=== PATIENT | male | born 1995 | race Caucasian/White ===

== ENCOUNTER 2019-05-31 09:36 | Outpatient (REF) | payer SELFPAY | END 2019-05-31 09:56 | LOC: NCHCN 09:36 | PROVIDERS: PCP Family Medicine; Visit Provider Nurse Practitioner Family | DX: Z53.8 Procedure and treatment not carried out for other reasons (principal) | CPT/HCPCS: 80307 ==

== ENCOUNTER 2019-11-13 10:50 | Outpatient (REF) | payer MEDICAID, SELFPAY ==
[2019-11-13 21:39] LABS: HCT 46.1 % (40.0-50.0); HGB 15.5 g/dL (13.5-17.5); MCH 31.1 pg (27.0-33.0); MCHC 33.6 % (32.0-36.0); MCV 92.6 fL (80-95); MPV 10.5 fL (8.0-11.0); Platelet Count 269 10^3/uL (130-400); RBC 4.98 10^6/uL (4.36-5.78); RDW 11.9 % (11.8-14.1); RDW-SD 41.1 fL; WBC 6.85 10^3/uL (4.4-10.8)
[2019-11-13 23:09] LABS: ALT 57 U/L (16-63); AST 22 U/L (15-37); Albumin 4.1 g/dL (3.4-5.0); Alkaline Phosphatase 54 U/L (46-116); BUN 15 mg/dL (7-18); Bilirubin, Total 0.5 mg/dL (0.2-1.0); CREATININE 0.99 mg/dL (0.70-1.30); Chloride 104 mmol/L (98-107); Glucose 96 mg/dL (74-106); Sodium 142 mmol/L (136-145); TSH (W/Ref FT4) 1.15 uIU/mL (0.36-3.74); Vitamin B12 365 pg/mL (193-986)
[2019-11-14 00:08] LABS: Total Protein 7.2 g/dL (6.4-8.2)
[2019-11-14 00:15] LABS: Hemoglobin A1C 5.2 % (<5.7)
== END 2019-11-13 11:10 ==
LOC: NCHCN 10:50
PROVIDERS: PCP Family Medicine; Visit Provider Nurse Practitioner Community Health
DX: G60.9 Hereditary and idiopathic neuropathy, unspecified (principal); Z83.3 Family history of diabetes mellitus
CPT/HCPCS: 80053; 85027; 82607; 83036; 84443

== ENCOUNTER 2020-01-05 15:50 | Emergency (ER) | payer MEDICAID, SELFPAY ==
[2020-01-05 15:57] VITALS: BP 142/92; PULSE 108; RESP 18; TEMP 36.7; O2SAT 96
--- NOTE | 2020-01-05 16:15 | W.ED.GENAD ---
Discharge Plan Disposition Patient Disposition: HOME Condition: Stable Discharge Details Clinical Impression: Rash and nonspecific skin eruption Primary Care Provider: Unknown,Unknown ED Provider: Tania Sommer Home Meds and New Rx's Prescriptions: New famotidine [Pepcid] 20 mg tablet 20 mg PO DAILY Qty: 7 RF: 0 prednisone 20 mg tablet 60 mg PO DAILY 5 Days Qty: 15 RF: 0 triamcinolone acetonide 0.1 % cream 1 applic topical DAILY 5 Days Qty: 30 RF: 0 Continued ibuprofen 600 MG tablet 600 mg PO QID PRN (Reason: Pain) Qty: 20 RF: 0 cyanocobalamin (vitamin B-12) 1,000 mcg tablet 1,000 mcg PO DAILY RF: 0 magnesium oxide 500 mg tablet 500 mg PO BID RF: 0 vitamin B complex [Vitamins B Complex] Capsule 1 cap PO DAILY RF: 0 cholecalciferol (vitamin D3) 50 mcg (2,000 unit) capsule 2,000 unit PO DAILY RF: 0 Discharge Instructions Instructions: Acute Rash (ED) Additional Instructions: Follow up with primary care provider in 3-5 days. Return to ED sooner if any worsening or concerns. Increase oral fluids. Please take Tylenol or Ibuprofen with food every 4-6 hours as needed for pain and swelling. May take Benadryl 1 or 2 tablets every 6-8 hours as needed for rash and itching. Please return for any problems breathing or worsening rash. Stand Alone Forms: Work Release Medical Decision Making 24-year-old male presents to the ER chief complaint of rash for 2 to 3 days. He has generalized small purpura like rash. Positive pruritus. Is to upper arms, upper thighs, abdomen and back. He has not taken any medications prior to arrival. He denies any known source, no new detergents no new medications. There is no your urticaria or hives noted. No problems breathing. 1713: Patient reevaluation, erythema has decreased, patient is sleeping, pruritus has decreased. Rash is still somewhat present. Instructed to follow-up with PCP, verbalized understanding. At this time patient is stable to be discharged home, no trouble breathing no septic symptoms. HPI General Mode of arrival: ambulatory. Date/Time Provider Initiated Documentation: 01/05/20 16:08. Limitations to Documentation: no limitations. Information obtained by: patient. HPI Narrative: 24-year-old male presents to the ER chief complaint of rash for 2 to 3 days. He has generalized small purpura like rash. Positive pruritus. Is to upper arms, upper thighs, abdomen and back. He has not taken any medications prior to arrival. He denies any known source, no new detergents no new medications. There is no your urticaria or hives noted. No problems breathing. Related Data Home Medications Medication Instructions Recorded Confirmed ibuprofen 600 mg PO QID PRN #20 tablet 09/06/17 01/05/20 cholecalciferol (vitamin D3) 2,000 unit PO DAILY 01/05/20 01/05/20 cyanocobalamin (vitamin B-12) 1,000 mcg PO DAILY 01/05/20 01/05/20 famotidine [Pepcid] 20 mg PO DAILY #7 tab 01/05/20 magnesium oxide 500 mg PO BID 01/05/20 01/05/20 prednisone 60 mg PO DAILY 5 Days #15 tab 01/05/20 triamcinolone acetonide 1 applic TOPICAL DAILY 5 Days #30 g 01/05/20 vitamin B complex [Vitamins B 1 cap PO DAILY 01/05/20 01/05/20 Complex] Previous Rx's Medication Instructions Recorded ibuprofen 600 mg PO QID PRN #20 tablet 09/06/17 famotidine [Pepcid] 20 mg PO DAILY #7 tab 01/05/20 prednisone 60 mg PO DAILY 5 Days #15 tab 01/05/20 triamcinolone acetonide 1 applic TOPICAL DAILY 5 Days #30 g 01/05/20 Allergies Allergy/AdvReac Type Severity Reaction Status Date / Time No Known Allergies Allergy Unverified 01/05/20 16:02 General Stated Complaint: RashLesion EMILY: 3 Review of Systems Narrative: Constitutional: Negative for weight loss, alert and oriented, well groomed, normal body habitus, appears comfortable. HEENT: Denies trauma, headaches, blurry vision, nasal discharge, sore throat, trouble swallowing. Chest: Denies chest pain, palpitations, irregular rhythm, hypertension. Respiratory: Denies Shortness of breath, cough, hemoptysis. GI: Denies abdominal pain, nausea, vomiting, diarrhea, constipation. : Denies dysuria, hematuria, flank pain, rectal bleeding. Skin: Rash and itching x2 to 3 days. Neuro: Denies dizziness, blurry vision, weakness, syncope, headache or facial numbness. Hematologic: Denies easy bruising, intolerance to heat or cold, hair loss. [facility] Medical History Family history of diabetes mellitus Fine motor skill loss Peripheral neuropathy Well adult exam Social History Smoking/Tobacco Use Status: Never Smoking risk assessment performed?: Yes Alcohol Intake: never Drug use: Never Substance use type: does not use Do you feel safe at home: Yes Do you feel safe in your relationship?: Yes Exam Narrative Exam Narrative: Constitutional: Alert and oriented x3. Appears stated age. Normal body habitus. Head: Normocephalic, no trauma. Eyes: Pupils PERRLA, Red reflex noted, EOM's intact. Eyelids symmetrical without lesions, discharge, or swelling. ENT: Bilateral TM's WNL, External ear normal to inspection, no mastoid TTP, swelling, or erythema, Nasal turbinates WNL, no nasal discharge. Normal dentition, Posterior pharynx WNL, no exudate. Chest: RRR, Normal S1, S2, distal pulses intact. Resp: Lungs clear to auscultation bilaterally, no wheezes, rales, or rhonchi. No trouble breathing. Musculoskeletal: Normal gait, 5/5 strength to all four extremities. Skin: Generalized rash noted to chest abdomen back upper extremities and upper thighs. Purpura no urticaria or hives noted. capillary refill less than 2 sec. Neurologic: Cranial nerves II-XII intact. Alert and oriented x 3. DTR's intact. Hematologic/Lymphatic: No ecchymosis, no lymphadenopathy. Course Vital Signs Vital signs: Vital Signs Temperature 36.7 C 01/05/20 15:57 Pulse 108 H 01/05/20 15:57 Respiratory Rate 18 01/05/20 15:57 Blood Pressure 142/92 H 01/05/20 15:57 Pulse Oximetry 96 01/05/20 15:57 Temperature 36.7 C 01/05/20 15:57 Temperature Source Temporal Artery Scan 01/05/20 15:57 Pulse 108 H 01/05/20 15:57 Respiratory Rate 18 01/05/20 15:57 Respiratory Effort Non-Labored 01/05/20 16:04 Blood Pressure 142/92 H 01/05/20 15:57 Blood Pressure Position Sitting 01/05/20 15:57 Pulse Oximetry 96 01/05/20 15:57 Oxygen Delivery Method Room Air 01/05/20 15:57 Oxygen Flow Rate 0 01/05/20 15:57 Pain Level 5 01/05/20 15:57
[2020-01-05] MEDS: Famotidine 20 MG TAB 40 MG PO (16:23)
[2020-01-05] MEDS: diphenhydrAMINE 25 MG CAP 50 MG PO (16:24)
[2020-01-05] MEDS: predniSONE 20 MG TAB 60 MG PO (16:24)
[2020-01-05 16:28] VITALS: BP 117/88; PULSE 118; RESP 20; O2SAT 98
--- NOTE | 2020-01-05 22:01 | NUR.NOTE ---
Nursing Note:Itching and redness almost completely resolved . Still has some red spots but also has some that appear to be acne. Feels much better.
== END 2020-01-05 17:50 | disposition home or self-care (01) ==
PROVIDERS: Emergency Provider Registered Nurse Emergency
DX: R21 Rash and other nonspecific skin eruption (principal); L29.9 Pruritus, unspecified
CPT/HCPCS: 99283; J7512

== ENCOUNTER 2020-04-30 02:53 | Outpatient (CLI) | payer MEDICAID, SELFPAY ==
[2020-04-30 17:01] LABS: C-Reactive Protein 0.37 mg/dL (0.0-0.3); Creatine Kinase 79 U/L (39-308)
[2020-04-30 21:42] LABS: Rheumatoid Factor <8.6 IU/mL (<12.0)
[2020-05-01 11:59] LABS: ESR 5 mm/hr (<or=15)
[2020-05-01 14:32] LABS: ANA Interpretation Negative (Negative)
== END 2020-04-30 02:54 | disposition home or self-care (01) ==
LOC: LBO 02:53
PROVIDERS: Visit Provider Psychiatry & Neurology Neurology
DX: R20.2 Paresthesia of skin (principal); M79.605 Pain in left leg; M25.531 Pain in right wrist; M25.532 Pain in left wrist
CPT/HCPCS: 36415; 82550; 85652; 86038; 86140; 86431

== ENCOUNTER 2020-06-17 01:29 | Outpatient (CLI) | payer MEDICAID, SELFPAY ==
--- NOTE | 2020-06-17 11:45 | DI.MRI_ITS ---
Exam(s) MR BRAIN WO EXAM: MR BRAIN WO CLINICAL HISTORY: LT LEG PARESTHESIAS,PAIN,R52,R20.2, ? MS TECHNIQUE: Multiplanar multisequence MRI of the brain was performed. COMPARISON: No exams were available for comparison FINDINGS: VENTRICLES AND EXTRA AXIAL SPACES: Normal in size and morphology for the patient's age. MIDLINE SHIFT: None. CEREBRAL PARENCHYMA: No focus of restricted diffusion to suggest acute infarct. No space-occupying le ritika identified. HEMORRHAGE: None. BRAINSTEM/CEREBELLUM: Normal. CALVARIUM: Normal. VISUALIZED PARANASAL SINUSES/MASTOIDS:Clear. TAZLINA OF REVELES: Normal flow void. PITUITARY GLAND: Unremarkable. OTHER FINDINGS: None. IMPRESSION: Unremarkable MRI of the brain. DATA REPOSITORY:
== END 2020-06-17 01:49 ==
PROVIDERS: Visit Provider Psychiatry & Neurology Neurology
DX: R20.2 Paresthesia of skin (principal); M79.605 Pain in left leg; M25.531 Pain in right wrist; M25.532 Pain in left wrist
CPT/HCPCS: 70551

== ENCOUNTER 2020-09-16 17:57 | Emergency (ER) | payer MEDICAID, SELFPAY ==
[2020-09-16 18:03] VITALS: BP 126/79; PULSE 82; RESP 20; TEMP 37.1; O2SAT 97
--- NOTE | 2020-09-16 18:15 | DI.CT_ITS ---
Exam(s) CT HEAD WO EXAM: CT HEAD WO CLINICAL HISTORY: dizziness, sinus congestion. TECHNIQUE: Imaging Protocol: Axial computed tomography images with coronal and sagittal reformatted images were created and reviewed COMPARISON: No exams were available for comparison FINDINGS: The ventricular system is normal in appearance. No evidence of acute intracranial hemorrhage, mass effect, or midline shift. The orbital structures are unremarkable. The temporal bone structures appear intact. Calvarium: Normal. Visualized Paranasal sinuses/Mastoids: Clear. IMPRESSION: Normal cranial CT. RADIATION DOSE DELIVERED: 820.63mGy.cm Total DLP 820.63mGy.cm Total DLP CTDIvol DATA REPOSITORY: All CT scans at this facility are submitted to the National Radiology Data Registry (NRDR) Dose Index Registry (DIR) with the [employer] (ACR). RADIATION OPTIMIZATION: All CT scans at this facility use at least one of these dose optimization te chniques: automated exposure control; mA and/or kV adjustment per patient size (includes targeted exa ms where dose is matched to clinical indication); or iterative reconstruction.
--- NOTE | 2020-09-16 18:16 | ED.GENADUL_ITS ---
Discharge Plan Disposition Patient Disposition: HOME Condition: Improving Discharge Details Chief Complaint: Dizzy/Sync Clinical Impression: Episodic peripheral vertigo ED Provider: Satya Patel Home Meds and New Rx's Prescriptions: New meclizine 12.5 mg tablet 12.5 mg PO TID PRN (Reason: dizziness) Qty: 10 RF: 0 Continued ibuprofen 600 MG tablet 600 mg PO QID PRN (Reason: Pain) Qty: 20 RF: 0 cyanocobalamin (vitamin B-12) 1,000 mcg tablet 1,000 mcg PO DAILY RF: 0 magnesium oxide 500 mg tablet 500 mg PO DAILY RF: 0 vitamin B complex [Vitamins B Complex] Capsule 1 cap PO DAILY RF: 0 cholecalciferol (vitamin D3) 50 mcg (2,000 unit) capsule 2,000 unit PO DAILY RF: 0 Discharge Instructions Instructions: Vertigo (ED) Additional Instructions: You may benefit from sleeping with head of the bed elevated 2-3 pillows for the next 2-3 nights. Avoid sudden movements of the head or sudden bending at the waist. Home to rest this evening. May use meclizine, as prescribed, as needed for dizziness. We will ask our care management team to help you establish local primary care. Medical Decision Making 25-year-old male reports 2-3 episodes of vertiginous, spinning sensation over the past 2 weeks time. He recently reports increased sinus drainage from what he describes as seasonal allergies. He has not had significant headache or vomiting. No recent fever or illness. He arrives to the ER with stable vital signs and a reassuring exam but does reveal some horizontal nystagmus with leftward gaze. His neurologic exam is otherwise unremarkable. Consideration of sinusitis, peripheral vertigo, must exclude intracranial mass although he did have an unremarkable MRI of the brain on June 17. IV access established, patient given a fluid bolus, screening labs obtained he is referred for noncontrast CT scan of the head. Patient given meclizine by mouth. Patient has unremarkable CBC, chemistries. CT scan of the head without evidence of acute intracranial abnormality nor of sinusitis. He is improved. I will prescribe him meclizine to be used as needed. He wishes to establish local primary care which we will ask care management to assist with. He is stable and improved, appropriate for discharge to home. HPI General Mode of arrival: ambulatory . Date/Time Provider Initiated Documentation: 09/16/20 17:58 . Limitations to Documentation: no limitations . Information obtained by: patient . History of Present Illness 25 year old M presents to the emergency department with the chief complaint of Intermittent dizziness over 2 weeks time, described as mild, and is localized to the head. Patient reports no radiation. Patient started experiencing this day(s) and it has been intermittent. No relieving factors improve symptom(s), No exacerbating factors reported . Patient notes denies fever/chills, headaches, nausea/vomiting and syncope. Patient did receive the following treatments prior to arrival, none Related Data Home Medications Medication Instructions Recorded Confirmed ibuprofen 600 mg PO QID PRN #20 tab 09/06/17 09/16/20 cholecalciferol (vitamin D3) 2,000 unit PO DAILY 09/16/20 09/16/20 cyanocobalamin (vitamin B-12) 1,000 mcg PO DAILY 09/16/20 09/16/20 magnesium oxide 500 mg PO DAILY 09/16/20 09/16/20 meclizine 12.5 mg PO TID PRN #10 tab 09/16/20 vitamin B complex [Vitamins B 1 cap PO DAILY 09/16/20 09/16/20 Complex] Previous Rx's Medication Instructions Recorded ibuprofen 600 mg PO QID PRN #20 tab 09/06/17 meclizine 12.5 mg PO TID PRN #10 tab 09/16/20 Allergies Allergy/AdvReac Type Severity Reaction Status Date / Time seasonal Allergy Unknown Uncoded 08/13/20 08:43 General Stated Complaint: Dizzy/Sync EMILY: 2 Review of Systems Narrative: Some seasonal allergies and sinus pressure. No vomiting. No recent illness. No fever, chills. 8 systems reviewed and otherwise negative. [facility] Medical History Anxiety Family history of diabetes mellitus Obstructive sleep apnea Surgical History No significant past surgical history Family History Father Diabetes Sister Asthma Mother Asthma Social History Smoking/Tobacco Use Status: Never Smoking risk assessment performed?: Yes Alcohol Intake: never Drug use: Never Substance use type: does not use Household members: none Number of Children: 0 current occupation: [employer] for [employer] Pets and animals: No What is your relationship status?: never Panel score (0-1 are the most socially isolated patients): 0 What type of physical activity do you participate in: walking Seatbelt use: always Do you feel safe at home: Yes Do you feel safe in your relationship?: Yes Exam Narrative Exam Narrative: GEN: awake, alert, oriented 3. Pleasant, well groomed, interactive. HEAD: Normocephalic, atraumatic ENT: Mucous membranes moist, oropharynx unremarkable, tympanic membranes clear bilaterally. External ear exam unremarkable EYES: PERRL, EOMI, with left lateral gaze there is 3 beat horizontal nystagmus. NECK: Full ROM, no ZACK, no menigismus CHEST/RESP: Nontender, clear to auscultation bilateral, no wheeze/rhonchi/rales CARDIOVASCULAR: RRR, no murmur, rub bryan. 2+ Rad pulse bilateral ABDOMEN: Soft, nontender, no mass. +Bowel sounds EXT: Full ROM, no edema, no rash Neuro: Grossly normal neurologic exam, conversant, interactive. Psych: Speech fluent, thoughts congruent, affect normal Course Vital Signs Vital signs: Vital Signs Temperature 37.1 C 09/16/20 18:03 Pulse 82 09/16/20 18:03 Respiratory Rate 20 09/16/20 18:03 Blood Pressure 126/79 09/16/20 18:03 Pulse Oximetry 97 09/16/20 18:03 Temperature 37.1 C 09/16/20 18:03 Temperature Source Temporal Artery Scan 09/16/20 18:03 Pulse 82 09/16/20 18:03 Respiratory Rate 20 09/16/20 18:03 Respiratory Effort Non-Labored 09/16/20 18:07 Blood Pressure 126/79 09/16/20 18:03 Blood Pressure Position Sitting 09/16/20 18:03 Pulse Oximetry 97 09/16/20 18:03 Oxygen Delivery Method Room Air 09/16/20 18:03 Oxygen Flow Rate 0 09/16/20 18:03 Pain Level 2 09/16/20 18:03
[2020-09-16] MEDS: Normal Saline 1,000 ML 1000 ML IV (18:37)
[2020-09-16] MEDS: Meclizine 25 MG TAB PO (18:37)
[2020-09-16 18:44] LABS: Abs Immature Grans 0.01 10^3/uL (0.0-0.06); Absolute Basophil Count 0.03 10^3/uL (0.0-0.2); Absolute Lymphocyte Count 2.66 10^3/uL (1.2-3.4); Absolute Monocyte Count 0.56 10^3/uL (0.1-0.8); Absolute Neutrophil Count 3.68 10^3/uL (1.2-6.7); Basophils % 0.4; Eosinophils % 1.4; HCT 42.1 % (40.0-50.0); HGB 14.5 g/dL (13.5-17.5); Immature Grans % 0.1; Lymphocytes % 37.8; MCH 31.6 pg (27.0-33.0); MCHC 34.4 % (32.0-36.0); MCV 91.7 fL (80-95); Neutrophils % 52.3; Nucleated RBC 0 %; Platelet Count 233 10^3/uL (130-400); RBC 4.59 10^6/uL (4.36-5.78); RDW 11.7 % (11.8-14.1); RDW-SD 39.3 fL; WBC 7.04 10^3/uL (4.4-10.8)
[2020-09-16 18:56] LABS: ALT 31 U/L (16-63); AST 11 U/L (15-37); Albumin 4.1 g/dL (3.4-5.0); Alkaline Phosphatase 56 U/L (46-116); Anion Gap 6.6 mmol/L (3-11); BUN 18 mg/dL (7-18); Bilirubin, Total 0.4 mg/dL (0.2-1.0); CO2 30.4 mmol/L (21.0-32.0); Calcium 8.8 mg/dL (8.5-10.1); Chloride 104 mmol/L (98-107); Glucose 98 mg/dL (74-106); Sodium 141 mmol/L (136-145); Total Protein 7.3 g/dL (6.4-8.2)
--- NOTE | 2020-09-16 18:57 | DI.VRAD_ITS ---
PROCEDURE INFORMATION: Exam: CT Head Without Contrast Exam date and time: 09/16/2020 6:16 PM Age: 25 years old Clinical indication: Dizziness and other: Sinus congestion; Patient HX: Dizziness, sinus congestion TECHNIQUE: Imaging protocol: Computed tomography of the head without contrast. COMPARISON: MR BRAIN WO 06/17/2020 11:15 AM FINDINGS: Brain: Normal. No hemorrhage. Unremarkable white matter. No mass effect. Cerebral ventricles: No ventriculomegaly. Paranasal sinuses: There is an isolated opacified ethmoid air cells otherwise the paranasal sinuses are clear. Mastoid air cells: Visualized mastoid air cells are well aerated. Bones/joints: Unremarkable. No acute fracture. Soft tissues: Unremarkable. IMPRESSION: No evidence of acute intracranial abnormality. No evidence of acute sinusitis. Dictated and Authenticated by: Dawson Artis MD. Ordering:GABRIEL Hernadez MD
--- NOTE | 2020-09-16 20:15 | NUR.NOTE ---
Referral to Care Management to establish pcp 1-2 weeks, vertigo.Nursing Note:
--- NOTE | 2020-09-17 10:48 | CMPROGNOTE_ITS ---
- If Service Date Differs Date of service: 09/17/20 Time of Service: 10:48 Care Management Progress Note Wallace is seen in the ED for vertigo. CM receives a request from ED provider to help Wallace establish with a PCP. A review of his medical chart reveals that he is already established with a provider at the [facility]. CM telephones the [facility] and is advised that Wallace is still an active patient. CM requests that they contact Wallace directly to offer a follow up appointment and to discuss transferring his care to the [facility], as he now resides in [facility] and traveling to [place] may be a barrier to care.
== END 2020-09-16 19:15 | disposition home or self-care (01) ==
LOC: ER 20:07
PROVIDERS: Emergency Provider Emergency Medicine
DX: H81.392 Other peripheral vertigo, left ear (principal); R09.81 Nasal congestion
CPT/HCPCS: 36415; 80053; 96360; 99284; 70450; 85025

== ENCOUNTER 2021-11-28 18:06 | Outpatient (REF) | payer MEDICAID, SELFPAY ==
[2021-12-01 09:14] LABS: Hepatitis B Surface Ag Negative (Negative)
[2021-12-01 09:55] LABS: HIV-1/2 Ag & Ab Screen Negative (Negative)
[2021-12-01 09:59] LABS: Hepatitis C Ab w Rflx HCV PCR Negative (Negative)
[2021-12-01 10:46] LABS: Syphilis Serology (RPR) Negative (Negative)
== END 2021-11-28 18:07 | disposition home or self-care (01) ==
LOC: LBN 18:06
PROVIDERS: Visit Provider Physician Assistant Medical
DX: Z11.59 Encounter for screening for other viral diseases (principal); Z11.3 Encounter for screening for infections with a predominantly sexual mode of transmission
CPT/HCPCS: 86803; 87340; 87389; 86592

== ENCOUNTER 2022-03-29 17:43 | Emergency (ER) | payer MEDICAID, SELFPAY ==
--- NOTE | 2022-03-29 17:45 | DI.RAD_ITS ---
Exam(s) XR FINGER LT RING EXAM: XR FINGER LT RING CLINICAL HISTORY: distal injury. TECHNIQUE: 2D digital imaging was performed. Three views. COMPARISON: None. FINDINGS: BONES: No acute fracture is present. No bony destructive lesion is seen. JOINTS: No dislocation present. SOFT TISSUE: Normal. IMPRESSION: No evidence of acute fracture, dislocation, or subluxation. DATA REPOSITORY: RADIATION DOSE DELIVERED:
[2022-03-29 17:46] VITALS: BP 143/88; PULSE 90; RESP 18; TEMP 37.2; O2SAT 98
--- NOTE | 2022-03-29 18:31 | DI.VRAD_ITS ---
PROCEDURE INFORMATION: Exam: XR Left Finger(s) Exam date and time: 03/29/2022 6:02 PM Age: 26 years old Clinical indication: Pain; Finger(s); Left; Patient HX: Distal injury TECHNIQUE: Imaging protocol: Radiologic exam of the Left fingers. Views: Minimum 2 views. COMPARISON: No relevant prior studies available. FINDINGS: Bones/joints: No fracture or dislocation. Soft tissues: Soft tissue swelling. No gas. No foreign body. IMPRESSION: 1. No fracture or dislocation. 2. Soft tissue swelling. No foreign body. Dictated and Authenticated by: Kit Oconnell MD. Ordering:NEETU Hammer MD
--- NOTE | 2022-03-31 19:25 | ED.GENADUL_ITS ---
Discharge Plan Disposition Patient Disposition: Home Condition: Stable Discharge Details Clinical Impression: Injury of left ring finger Primary Care Provider: Unknown,Unknown ED Provider: Jaquelin Osman Home Meds and New Rx's Prescriptions: Continued ibuprofen 600 MG tablet 600 mg PO QID PRN (Reason: Pain) Qty: 20 0RF cyanocobalamin (vitamin B-12) 1,000 mcg tablet 1,000 mcg PO DAILY Patient Comments: TAKE ONE TABLET BY MOUTH EVERY MORNING magnesium oxide 500 mg tablet 500 mg PO DAILY Patient Comments: TAKE ONE TABLET BY MOUTH TWICE A DAY vitamin B complex [Vitamins B Complex] Capsule 1 cap PO DAILY Patient Comments: TAKE ONE CAPSULE BY MOUTH EVERY MORNING cholecalciferol (vitamin D3) 50 mcg (2,000 unit) capsule 2,000 unit PO DAILY Patient Comments: TAKE ONE CAPSULE BY MOUTH EVERY DAY meclizine 12.5 mg tablet 12.5 mg PO TID PRN (Reason: dizziness) Qty: 10 0RF Discharge Instructions Additional Instructions: Take Tylenol and ibuprofen as needed for pain ice, elevate recheck in one week with persistent pain Stand Alone Forms: Work Release Discharge Data Discharge Date/Time-TO BE ENTERED AT DEPARTURE: 03/29/22 19:44 HPI General Date/Time Provider Initiated Documentation: 03/29/22 17:53 . HPI Narrative: This 26-year-old male presents with injury to left fourth ring finger at work. 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 This was an accident. He has had bruising and pain to the distal finger since that time. He is otherwise reportedly healthy. Event occurred today. Related Data Home Medications Medication Instructions Recorded Confirmed ibuprofen 600 mg tablet 600 mg PO QID PRN Pain #20 tabs 09/06/17 03/29/22 cholecalciferol (vitamin D3) 50 2,000 unit PO DAILY 09/16/20 03/29/22 mcg (2,000 unit) capsule cyanocobalamin (vitamin B-12) 1,000 mcg PO DAILY 09/16/20 03/29/22 1,000 mcg tablet magnesium oxide 500 mg tablet 500 mg PO DAILY 09/16/20 03/29/22 meclizine 12.5 mg tablet 12.5 mg PO TID PRN dizziness #10 09/16/20 03/29/22 tabs vitamin B complex (Vitamins B 1 cap PO DAILY 09/16/20 03/29/22 Complex capsule) Previous Rx's Medication Instructions Recorded ibuprofen 600 mg tablet 600 mg PO QID PRN Pain #20 tabs 09/06/17 meclizine 12.5 mg tablet 12.5 mg PO TID PRN dizziness #10 09/16/20 tabs Allergies Allergy/AdvReac Type Severity Reaction Status Date / Time seasonal Allergy Unknown Uncoded 03/29/22 17:49 General Stated Complaint: Orthopedic EMILY: 4 PFSH All Active Problems (Updated 03/29/22 @ 18:34 by KEDAR Elliott) Episodic peripheral vertigo (Acute) Injury of left ring finger (Acute) Pain (Acute) Left leg paresthesias (Acute) Medical History Anxiety Family history of diabetes mellitus Obstructive sleep apnea Surgical History No significant past surgical history Family History Father Diabetes Sister Asthma Mother Asthma Social History Smoking/Tobacco Use Status: Never Smoking risk assessment performed?: Yes Alcohol Intake: never Drug use: Never Substance use type: does not use Household members: none Number of Children: 0 current occupation: [employer] for [employer] Pets and animals: No What is your relationship status?: never Panel score (0-1 are the most socially isolated patients): 0 What type of physical activity do you participate in: walking Seatbelt use: always Do you feel safe at home: Yes Do you feel safe in your relationship?: Yes Exam Narrative Exam Narrative: Patient presents with left fourth digit injury on hand Secondary to complaint and physical exam, x-ray was ordered which does not show evidence of fracture Approximately 2 mm subungual hematoma, no indication for trephination at this point Neurovascularly intact, placed in a splint for comfort Work note supplied Ibuprofen and Tylenol. He Return precautions reviewed and patient expressed understanding Course Vital Signs Vital signs: Vital Signs Temperature 37.2 C 03/29/22 17:46 Pulse 90 03/29/22 17:46 Respiratory Rate 18 03/29/22 17:46 Blood Pressure 143/88 H 03/29/22 17:46 Pulse Oximetry 98 03/29/22 17:46 Temperature 37.2 C 03/29/22 17:46 Temperature Source Oral 03/29/22 17:46 Pulse 90 03/29/22 17:46 Respiratory Rate 18 03/29/22 17:46 Respiratory Effort Normal, Non-Labored 03/29/22 17:50 Blood Pressure 143/88 H 03/29/22 17:46 Pulse Oximetry 98 03/29/22 17:46 Oxygen Delivery Method Room Air 03/29/22 17:46 Oxygen Flow Rate 0 03/29/22 17:46 Pain Level 5 03/29/22 17:50
== END 2022-03-29 19:44 | disposition home or self-care (01) ==
PROVIDERS: Emergency Provider Physician Assistant
DX: S60.042A Contusion of left ring finger without damage to nail, initial encounter (principal); W23.0XXA Caught, crushed, jammed, or pinched between moving objects, initial encounter; Y92.89 Other specified places as the place of occurrence of the external cause; Y99.0 Civilian activity done for income or pay
CPT/HCPCS: 99283; 73140; 99282

== ENCOUNTER 2022-07-24 16:32 | Emergency (ER) | payer BC, MEDICAID, SELFPAY ==
--- NOTE | 2022-07-24 16:30 | RT.EKG_ITS ---
APPROVED REPORT Exam: Resting ECG Reason for Exam: chest pain Patient Location: E HR:77 bpm ECG Measurements Heart Rate 77 AXIS SC 143 P 62 QRSd 93 QRS 45 QT 373 T 28 QTc 423 Conclusion Sinus rhythm...normal P axis, V-rate 60- 99 Probable left atrial enlargement...P >50mS, <-0.10mV V1 ST elev, probable normal early repol pattern...ST elevation, age<55
--- NOTE | 2022-07-24 16:30 | DI.RAD_ITS ---
Exam(s) XR CHEST 2V PA LATERAL EXAM: XR CHEST 2V PA LATERAL CLINICAL HISTORY: Chest Pain TECHNIQUE: 2D digital imaging was performed of the chest. Two images were obtained. PA and lateral views were obtained. COMPARISON: No exams were available for comparison FINDINGS: MEDIASTINUM: Normal. HEART: Normal. PULMONARY VASCULATURE: Normal. LUNGS: Clear. PLEURAL SPACE: No pleural effusion or pneumothorax. BONE:Within normal limits for the patient's age. OTHER FINDINGS:Normal. IMPRESSION: No acute pulmonary findings. DATA REPOSITORY: RADIATION DOSE DELIVERED:
[2022-07-24 16:35] VITALS: BP 129/83; PULSE 83; RESP 18; TEMP 36.9; O2SAT 99
[2022-07-24 16:42] VITALS: RESP 24
--- NOTE | 2022-07-24 16:45 | ED.GENADUL_ITS ---
Discharge Plan Disposition Patient Disposition: Home Discharge Details Clinical Impression: Chest wall pain Primary Care Provider: Unknown,Unknown ED Provider: Tania Sommer Home Meds and New Rx's Prescriptions: No Action ibuprofen 600 MG tablet 600 mg PO QID PRN (Reason: Pain) Qty: 20 0RF cyanocobalamin (vitamin B-12) 1,000 mcg tablet 1,000 mcg PO DAILY Patient Comments: TAKE ONE TABLET BY MOUTH EVERY MORNING magnesium oxide 500 mg tablet 500 mg PO DAILY Patient Comments: TAKE ONE TABLET BY MOUTH TWICE A DAY vitamin B complex [Vitamins B Complex] Capsule 1 cap PO DAILY Patient Comments: TAKE ONE CAPSULE BY MOUTH EVERY MORNING cholecalciferol (vitamin D3) 50 mcg (2,000 unit) capsule 2,000 unit PO DAILY Patient Comments: TAKE ONE CAPSULE BY MOUTH EVERY DAY meclizine 12.5 mg tablet 12.5 mg PO TID PRN (Reason: dizziness) Qty: 10 0RF Discharge Instructions Instructions: Chest Wall Pain (ED) Additional Instructions: Work-up is within normal limits no acute abnormality for cardiac or lung. I do suspect that you have a muscle wall strain or STEMI called costochondritis which is inflammation of the chest wall. Please take Tylenol or Ibuprofen with food every 4-6 hours as needed for pain and swelling. Alternate ice and heat. Follow up with primary care provider in 3-5 days. Return to ED sooner if any worsening or concerns. Increase oral fluids. You are placed on care management list to help establish PCP. Stand Alone Forms: Work Release Discharge Data Discharge Date/Time-TO BE ENTERED AT DEPARTURE: 07/24/22 18:33 Medical Decision Making 27-year-old male presents to the ER with chief complaint of midsternal sharp chest pain which began approximately 15 minutes prior to arrival while working at a local [email or web address]. He reports worse with movement and deep breathing it has subsided somewhat but is still present upon arrival. Denies any trauma to the chest no shortness of breath no nausea. Pain is not producible with palpation. Does have a past medical history of anxiety and obstructive sleep apnea. He denies smoking no drugs or alcohol he reports he did have an energy drink earlier. He did not take any medications prior to arrival. EKG was reviewed by Dr. Barry Del Rosario ER attending, please see his official report. No old EKG available for review. Some questionable ST elevation probably early repolarization. No STEMI. Chest x-ray, CBC CMP 1 troponin and Toradol ordered. Differential diagnosis includes but not limited to CAD, pleurisy, costochondritis, chest wall pain, anxiety 1820: Patient reevaluation, he reports he feels much better after the Toradol. Discussed negative workup with patient who verbalizes understanding. Will place patient on care management list to aid in establishing PCP. This text was generated using [employer] dictation system, please disregard any oddities of phrase or misspellings. Medical Records Medical records reviewed: Yes I reviewed the patient's medical records. Imaging Data Radiologic Study: Imaging: X-Ray Radiologist's impression: Clinical indication: Other: Chest pain TECHNIQUE: Imaging protocol: Radiologic exam of the chest. Views: 2 views. COMPARISON: No relevant prior studies available. FINDINGS: Lungs: Unremarkable. No consolidation. Pleural spaces: Unremarkable. No pleural effusion. No pneumothorax. Heart/Mediastinum: Unremarkable. No cardiomegaly. Bones/joints: Unremarkable. IMPRESSION: No acute findings. Thank you for allowing us to participate in the care of your patient. Dictated and Authenticated by: Roberto Dwyer MD Lab Data Lab results reviewed: Yes I reviewed the patient's lab results. Labs: Laboratory Tests Range/Units 07/24/22 07/24/22 07/24/22 16:50 16:50 16:50 WBC (4.4-10.8) 10^3/uL 7.43 RBC (4.36-5.78) 10^6/uL 4.82 Hgb (13.5-17.5) g/dL 15.3 Hct (40.0-50.0) % 44.2 MCV (80-95) fL 92 MCH (27.0-33.0) pg 31.7 MCHC (32.0-36.0) % 34.6 RDW (11.8-14.1) % 11.7 L Plt Count (130-400) 10^3/uL 263 MPV (8.0-11.0) fL 9.7 Immature Gran % 0.4 Neutrophils % 53.0 Lymphocytes % 38.5 Monocytes % 6.2 Eosinophils % 1.5 Basophils % 0.4 Nucleated RBC % (0.0-0.3) % 0.0 Absolute Neutrophils (1.2-6.7) 10^3/uL 3.94 Absolute Lymphocytes (1.2-3.4) 10^3/uL 2.86 Absolute Monocytes (0.1-0.8) 10^3/uL 0.46 Absolute Eosinophils (0.0-0.7) 10^3/uL 0.11 Absolute Basophils (0.0-0.2) 10^3/uL 0.03 Sodium (136-145) mmol/L 138 Potassium (3.5-5.1) mmol/L 3.9 Chloride (98-107) mmol/L 101 Carbon Dioxide (21.0-32.0) mmol/L 30.5 Anion Gap (3-11) mmol/L 6.5 BUN (7-18) mg/dL 18 Creatinine (0.70-1.30) mg/dL 1.0 Est GFR (CKD-EPI 2020) (mL/min/1.73m2) 107.12 Glucose (74-106) mg/dL 101 Calcium (8.5-10.1) mg/dL 9.3 Troponin I (<or=60) ng/L < 50 HPI General Mode of arrival: ambulatory . Date/Time Provider Initiated Documentation: 07/24/22 16:32 . Limitations to Documentation: no limitations . Information obtained by: patient, RN notes reviewed and old records reviewed . 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 He reports worse with movement and deep breathing it has subsided somewhat but is still present upon arrival. Denies any trauma to the c hest no shortness of breath no nausea. Pain is not producible with palpation. Does have a past medical history of anxiety and obstructive sleep apnea. He denies smoking no drugs or alcohol he reports he did have an energy drink earlier. He did not take any medications prior to arrival. Related Data Home Medications Medication Instructions Recorded Confirmed ibuprofen 600 mg tablet 600 mg PO QID PRN Pain #20 tabs 09/06/17 03/29/22 cholecalciferol (vitamin D3) 50 2,000 unit PO DAILY 09/16/20 03/29/22 mcg (2,000 unit) capsule cyanocobalamin (vitamin B-12) 1,000 mcg PO DAILY 09/16/20 03/29/22 1,000 mcg tablet magnesium oxide 500 mg tablet 500 mg PO DAILY 09/16/20 03/29/22 meclizine 12.5 mg tablet 12.5 mg PO TID PRN dizziness #10 09/16/20 03/29/22 tabs vitamin B complex (Vitamins B 1 cap PO DAILY 09/16/20 03/29/22 Complex capsule) Previous Rx's Medication Instructions Recorded ibuprofen 600 mg tablet 600 mg PO QID PRN Pain #20 tabs 09/06/17 meclizine 12.5 mg tablet 12.5 mg PO TID PRN dizziness #10 09/16/20 tabs Allergies Allergy/AdvReac Type Severity Reaction Status Date / Time seasonal Allergy Unknown Uncoded 03/29/22 17:49 General Stated Complaint: Chest Pain EMILY: 3 Review of Systems All systems reviewed & are unremarkable except as noted in HPI and below Cardiovascular Cardiovascular: Reports chest pain and Denies dyspnea Respiratory Respiratory: Denies cough, Denies dyspnea and Denies wheezing Gastrointestinal Gastrointestinal: Denies diarrhea, Denies nausea and Denies vomiting Allergic/Immunologic Allergic/Immunologic: Denies wheezing PFSH All Active Problems (Updated 07/24/22 @ 18:23 by Tania Sommer NP) Episodic peripheral vertigo (Acute) Chest wall pain (Acute) Pain (Acute) Left leg paresthesias (Acute) Medical History Anxiety Family history of diabetes mellitus Obstructive sleep apnea Surgical History No significant past surgical history Family History Father Diabetes Sister Asthma Mother Asthma Social History Smoking/Tobacco Use Status: Never Smoking risk assessment performed?: Yes Alcohol Intake: never Drug use: Never Substance use type: does not use Household members: none Number of Children: 0 current occupation: [email or web address] Pets and animals: No What is your relationship status?: never Panel score (0-1 are the most socially isolated patients): 0 What type of physical activity do you participate in: walking Seatbelt use: always Do you feel safe at home: Yes Do you feel safe in your relationship?: Yes Exam Narrative Exam Narrative: Constitutional: Alert and oriented x3. Appears stated age. Normal body habitus. Head: Normocephalic, no trauma. Eyes: Pupils PERRL, Red reflex noted, EOM's intact. Eyelids symmetrical without lesions, discharge, or swelling. ENT: Bilateral TM's WNL, External ear normal to inspection, no mastoid TTP, swelling, or erythema, Nasal turbinates WNL, no nasal discharge. Normal dentition, Posterior pharynx WNL, no exudate. Chest: RRR, Normal S1, S2, distal pulses intact. No murmurs rubs or gallops. Resp: Lungs clear to auscultation bilaterally, no wheezes, rales, or rhonchi. Abdomen: Soft, non-distended, Normoactive bowel sounds all 4 quads. Musculoskeletal: Normal gait, 5/5 strength to all four extremities. Skin: No suspicious rashes or lesions. Capillary refill less than 2 sec. Neurologic: Cranial nerves II-XII intact. Alert and oriented x 3. Motor: No deficits noted. Sensory: Intact bilaterally all 4 extremities. Reflexes: DTR's intact bilaterally.. Hematologic/Lymphatic: No ecchymosis, no lymphadenopathy. Course Vital Signs Vital signs: Vital Signs Temperature 36.9 C 07/24/22 16:35 Pulse 83 07/24/22 16:35 Respiratory Rate 18 07/24/22 16:35 Blood Pressure 129/83 07/24/22 16:35 Pulse Oximetry 99 07/24/22 16:35 Temperature 36.9 C 07/24/22 16:35 Pulse 83 07/24/22 16:35 Respiratory Rate 24 07/24/22 16:42 Respiratory Effort Normal 07/24/22 16:42 Respiratory Depth Normal 07/24/22 16:42 Respiratory Pattern Normal 07/24/22 16:42 Blood Pressure 129/83 07/24/22 16:35 Blood Pressure Position Sitting 07/24/22 16:35 Pulse Oximetry 99 07/24/22 16:35 Oxygen Delivery Method Room Air 07/24/22 16:35 Oxygen Flow Rate 0 07/24/22 16:35 Pain Level 5 07/24/22 16:42
[2022-07-24 17:02] LABS: Abs Immature Grans 0.03 10^3/uL (0.0-0.06); Absolute Basophil Count 0.03 10^3/uL (0.0-0.2); Absolute Eosinophil Count 0.11 10^3/uL (0.0-0.7); Absolute Lymphocyte Count 2.86 10^3/uL (1.2-3.4); Absolute Monocyte Count 0.46 10^3/uL (0.1-0.8); Absolute Neutrophil Count 3.94 10^3/uL (1.2-6.7); Basophils % 0.4; Eosinophils % 1.5; HCT 44.2 % (40.0-50.0); HGB 15.3 g/dL (13.5-17.5); Immature Grans % 0.4; Lymphocytes % 38.5; MCH 31.7 pg (27.0-33.0); MCHC 34.6 % (32.0-36.0); MCV 92 fL (80-95); MPV 9.7 fL (8.0-11.0); Monocytes % 6.2; Platelet Count 263 10^3/uL (130-400); RBC 4.82 10^6/uL (4.36-5.78); RDW 11.7 % (11.8-14.1); RDW-SD 39.4 fL; WBC 7.43 10^3/uL (4.4-10.8)
[2022-07-24 17:09] LABS: Anion Gap 6.5 mmol/L (3-11); BUN 18 mg/dL (7-18); CO2 30.5 mmol/L (21.0-32.0); Calcium 9.3 mg/dL (8.5-10.1); Chloride 101 mmol/L (98-107); Estimated GFR 107.12 (mL/min/1.73m2); Glucose 101 mg/dL (74-106); Potassium 3.9 mmol/L (3.5-5.1); Sodium 138 mmol/L (136-145)
[2022-07-24] MEDS: Ketorolac 30 MG/ML VIAL IVP (17:24)
[2022-07-24] MEDS: Normal Saline 500 ML IV (17:25)
[2022-07-24 17:44] LABS: Troponin I < 50 ng/L (<or=60)
--- NOTE | 2022-07-24 18:06 | DI.VRAD_ITS ---
PROCEDURE INFORMATION: Exam: XR Chest Exam date and time: 07/24/2022 5:49 PM Age: 27 years old Clinical indication: Other: Chest pain TECHNIQUE: Imaging protocol: Radiologic exam of the chest. Views: 2 views. COMPARISON: No relevant prior studies available. FINDINGS: Lungs: Unremarkable. No consolidation. Pleural spaces: Unremarkable. No pleural effusion. No pneumothorax. Heart/Mediastinum: Unremarkable. No cardiomegaly. Bones/joints: Unremarkable. IMPRESSION: No acute findings. Dictated and Authenticated by: Roberto Dwyer MD. Ordering:MILLY Marin MD
--- NOTE | 2022-07-24 18:24 | NUR.NOTE ---
Nursing Note: PT needs PCP to establish care. Nathaly, ED
[2022-07-24 18:32] VITALS: BP 126/80; PULSE 80; RESP 18; TEMP 36.8; O2SAT 99
== END 2022-07-24 18:33 | disposition home or self-care (01) ==
PROVIDERS: Emergency Provider Registered Nurse Emergency
DX: R07.9 Chest pain, unspecified (principal)
CPT/HCPCS: 36415; 80048; 93005; 96361; 96374; 99284; 71046; 84484; 85025; 93010; J1885